=== PATIENT | male | born 1955 | race Caucasian/White ===

== ENCOUNTER 2021-03-15 16:26 | Emergency (ER) | payer MEDICARE, OTHER, SELFPAY ==
[2021-03-15 17:09] VITALS: BP 161/86; PULSE 86; RESP 18; TEMP 37.3; O2SAT 99
--- NOTE | 2021-03-15 17:15 | ED.URI ---
HPI - URI/Sore Throat General Chief Complaint: Upper Respiratory Infection Stated Complaint: Cough,Congestion,Body Aches Source: patient and RN notes reviewed Limitations: no limitations History of Present Illness HPI Narrative: The boost vaccinated patient, a non-smoker/nondrinker, presents with cough. Patient , here with several other coughing/bronchiolitic grandchildren, wants also to be seen for 3-day history of cough. No fever, sore throat, sputum changes, wheezing earache; no loss of taste/smell, CP, shortness of breath, calf pain/edema.. Symptoms are mild somewhat slightly worse sleeping/supine Related Data Home Medications Medication Instructions Recorded Confirmed alfuzosin 10 mg PO DAILY 03/15/21 03/15/21 anastrozole 1 mg PO DAILY 03/15/21 03/15/21 hydroxychloroquine 200 mg PO DAILY 03/15/21 03/15/21 sildenafil 100 mg PO PRN PRN 03/15/21 03/15/21 thyroid (pork) [[place] Thyroid] 15 mg PO DAILY 03/15/21 03/15/21 Allergies Allergy/AdvReac Type Severity Reaction Status Date / Time No Known Allergies Allergy Verified 03/15/21 16:47 Review of Systems Review of Systems: General/Constitutional: No weight loss,fever Eyes: N0: Redness,discharge Ears/Nose/Throat: No: Epistaxis,ear discharge Respiratory: Denies: Hemoptysis Gastrointestinal: No Vomiting, Bleeding-rectal Skin: No Lumps, eruption Neurologic: No Focal Weakness,Sz Hematologic: Denies: Petechiae/Purpura Psychiatric: No: Suicida ideationl All Other Systems: Reviewed and Negative PMFSH Comments At time of signature, agree with nursing past medical, surgical, social and family history. There is no relevant family history pertinent to the presenting complaint Exam Narrative: General Appearance: Well appearing, Well nourished EYE: PERRLA, Conjunctiva clear Ears: Auditory canal normal, TM normal Nose: Rhinorrhea, Mucousal erythema Mouth/Throat: MM moist, Uvula midline, Pharyngeal erythema Neck: Supple, No adenopathy Respiratory: No respiratory distress, Breath sounds equal, Clear to auscultation Cardiovascular: RRR, No JVD Musculoskeletal: Non tender, Normal strength Skin: Warm, Dry Neurological: A&O x3, CN II-XII intact Psychiatric: Normal mood, Normal affect Course Vital Signs Vital signs: Vital Signs Temperature 99.1 F 03/15/21 17:09 Pulse Rate 86 03/15/21 17:09 Respiratory Rate 18 03/15/21 17:09 Blood Pressure 161/86 H 03/15/21 17:09 Pulse Oximetry 99 03/15/21 17:09 Temperature 99.1 F 03/15/21 17:09 Pulse Rate 86 03/15/21 17:09 Respiratory Rate 18 03/15/21 17:09 Blood Pressure 161/86 H 03/15/21 17:09 Pulse Oximetry 99 03/15/21 17:09 Discharge Plan Discharge Clinical Impression: Cough Patient Disposition: Home, Self-Care Condition: Stable Instructions: Acute Bronchitis (ED) Additional Instructions: Decrease hydroxychloroquine/Plaquenil by half or every other day Prescriptions: New azithromycin 250 mg tablet See Rx Instructions .ROUTE .COMPLEX Qty: 6 RF: 0 benzonatate 100 mg capsule 100 mg PO TID PRN (Reason: cough) Qty: 20 RF: 2 codeine-guaifenesin 10-100 mg/5 mL liquid 7.5 ml PO TID PRN (Reason: cough) Qty: 118 RF: 0 No Action anastrozole 1 mg tablet 1 mg PO DAILY RF: 0 sildenafil 100 mg tablet 100 mg PO PRN PRN (Reason: Erectile Dysfunction) RF: 0 hydroxychloroquine 200 mg tablet 200 mg PO DAILY RF: 0 alfuzosin 10 mg tablet extended release 24 hr 10 mg PO DAILY RF: 0 thyroid (pork) [[place] Thyroid] 15 mg tablet 15 mg PO DAILY RF: 0 Other Ambulatory Orders: SARS-CoV-2 RNA, Qual RT-PCR (Routine) Location: Determined by Patient Ordered By: Richard Tracey Follow-up/Referrals: Adis,Alexus Ceja MD [Primary Care Provider] -
== END 2021-03-15 18:04 | disposition home or self-care (01) ==
PROVIDERS: Emergency Provider Emergency Medicine; PCP Family Medicine Sports Medicine
DX: R05.9 Cough, unspecified (principal); Z20.822 Contact with and (suspected) exposure to COVID-19; N40.0 Benign prostatic hyperplasia without lower urinary tract symptoms; M19.90 Unspecified osteoarthritis, unspecified site; M06.9 Rheumatoid arthritis, unspecified; E03.9 Hypothyroidism, unspecified
CPT/HCPCS: 99203; G0463

== ENCOUNTER 2021-07-29 11:01 | Emergency (ER) | payer MEDICARE, OTHER, SELFPAY ==
[2021-07-29 11:41] VITALS: BP 130/77; PULSE 91; RESP 19; TEMP 36.8; O2SAT 97
--- NOTE | 2021-07-29 11:54 | ED.URI ---
HPI - URI/Sore Throat General Chief Complaint: Upper Respiratory Infection Stated Complaint: Sore Throat Time Seen by Provider: 07/29/21 11:55 Source: patient and RN notes reviewed Mode of arrival: ambulatory Limitations: no limitations History of Present Illness HPI Narrative: 65-year-old male presented for complaint of sore throat for about 2 days. He endorses sinus congestion and postnasal drainage, mild nausea as well. Denies cough, shortness of breath, wheezing, vomiting, fevers or chills. He endorses sick contact, grandson positive for strep. COVID test was negative today at outside site. Vaccinated for COVID and flu. MD elicited complaint: cough Related Data Home Medications Medication Instructions Recorded Confirmed alfuzosin 10 mg PO DAILY 03/15/21 03/15/21 anastrozole 1 mg PO DAILY 03/15/21 03/15/21 hydroxychloroquine 200 mg PO DAILY 03/15/21 03/15/21 thyroid (pork) [[place] Thyroid] 15 mg PO DAILY 03/15/21 03/15/21 montelukast 10 mg PO DAILY 07/29/21 07/29/21 Allergies Allergy/AdvReac Type Severity Reaction Status Date / Time No Known Allergies Allergy Verified 07/29/21 12:08 Review of Systems Review of Systems: CONSTITUTIONAL: Denies malaise, chills, sweats, fever EYES: Denies visual changes, redness, or discharge ENT: Reports rhinorrhea, congestion, sinus pain, sore throat CARDIOVASCULAR: Denies chest pain, palpitations, edema RESPIRATORY: Reports cough, post nasal drainage. Denies dyspnea GASTROINTESTINAL: Denies abdominal pain, nausea, vomiting, diarrhea SKIN: Denies rash or itching MUSCULOSKELETAL: Denies myalgia NEUROLOGIC: Denies headache Exam Narrative: GENERAL: Well-appearing HEAD: Normocephalic EYES: conjunctivae clear ENT: Mucous membranes moist. TM pearly gallardo with dull light reflex bilaterally; no tragal tenderness. Oropharynx erythematous without lesions or exudate, no drooling, no hoarseness, no trismus, uvula midline. No tripod positioning, muffled voice, soft palate or pharyngeal wall bulging NECK: Supple. No lymphadenopathy CHEST: Clear to auscultation, breath sounds equal. No wheezing, rhonchi, rales, or stridor. No respiratory distress, speaks in full sentences. HEART: Regular rate and rhythm. No murmur heard. SKIN: Warm, dry, no rash. NEURO: Alert and oriented x3. PSYCH: Normal mood and affect Course Course Emergency Course: Patient is aware of diagnosis, understands and agrees to treatment plan. Anticipatory guidance given. Patient agrees to follow-up as directed and is aware of reasons to seek care at the emergency department. Portions of this record may have been created with voice recognition software Level of Care: Express Care Visit Vital Signs Vital signs: Vital Signs Temperature 98.2 F 07/29/21 11:41 Pulse Rate 91 07/29/21 11:41 Respiratory Rate 19 07/29/21 11:41 Blood Pressure 130/77 07/29/21 11:41 Pulse Oximetry 97 07/29/21 11:41 Temperature 98.2 F 07/29/21 11:41 Pulse Rate 91 07/29/21 11:41 Respiratory Rate 19 07/29/21 11:41 Blood Pressure 130/77 07/29/21 11:41 Pulse Oximetry 97 07/29/21 11:41 reviewed MDM - URI/Sore Throat MDM Narrative Medical decision making narrative: strep negative Advised on supportive treatments. He is appropriate for outpatient treatment and follow-up. Differential Diagnosis Differential diagnosis: Likely upper respiratory infection, sinusitis, viral infection and pharyngitis Lab Data Attestation: I reviewed the patient's lab results. Labs: Strep Screen Presumptive Negative *(Reference Range: Negative)* Discharge Plan Discharge Clinical Impression: Pharyngitis Qualifiers: Pharyngitis/tonsillitis etiology: unspecified etiology Qualified Code(s): J02.9 - Acute pharyngitis, unspecified Patient Disposition: Home, Self-Care Condition: Stable Instructions: Antibiotic Form, Allergic Rhinitis (ED) Additional Instructions:
== END 2021-07-29 12:11 | disposition home or self-care (01) ==
PROVIDERS: Emergency Provider Nurse Practitioner Family; PCP Family Medicine Sports Medicine
DX: J02.9 Acute pharyngitis, unspecified (principal)
CPT/HCPCS: 87081; 87880; 99213; G0463